=== PATIENT | male | born 1950 | race Caucasian/White ===

== ENCOUNTER 2025-02-23 16:52 | Emergency (ER) | payer MEDICARE ==
[~2025-02-23] VITALS: Ht 172.7 cm; Wt 93.0 kg
[2025-02-23] MEDS ORDERED: Diphth,Pertuss(Acell),Tet Vac 0.5 ML VIAL IM ONE (18:35)
[2025-02-23] MEDS ORDERED: Doxycycline Hyclate 100 MG TAB PO ONE (18:35)
== END 2025-02-23 18:50 | disposition home or self-care (01) ==
LOC: ER 16:52
DX: S30.861A Insect bite (nonvenomous) of abdominal wall, initial encounter (principal); W57.XXXA Bitten or stung by nonvenomous insect and other nonvenomous arthropods, initial encounter
CPT/HCPCS: 10120; 90471; 90715; 99282-25; A9270